=== PATIENT | female | born 1950 | race Caucasian/White ===

== ENCOUNTER → 2020-04-05 | Outpatient (CLI) | payer OTHER ==
[~2020-04-05] MED LIST: ALPR0.25 PO; ASCO100018 PO; ASPI81TA45 PO; CHOL10002 PO; ESTR1TAB27 PO; HYDR2TAB29 PO; L.AC1CAP6 PO; MAGN400T9 PO; METH750T87 PO; MULT-449 PO; OXYC5CAP2 PO; SENN8.6T98 PO; SIMV20TA19 PO; VENL37.58 PO
[2020-04-05 14:53] LABS: BASOPHILS % (AUTO) 1 % (0-1); EOSINOPHILS % (AUTO) 1 % (1-7); LYMPHOCYTES % (AUTO) 38 % (22-44); MEAN CORPUSCULAR HEMOGLOBIN 29.9 pg (27.0-34.8); MEAN CORPUSCULAR HGB CONC 32.9 g/dL (32.4-35.8); MEAN PLATELET VOLUME 9.5 fL (7.4-10.4); MONOCYTES % (AUTO) 8 % (2-9); NEUTROPHILS % (AUTO) 52 % (42-75); PLATELET COUNT 250 x10^3/uL (130-400); RED BLOOD COUNT 4.99 x10^6/uL (3.82-5.3); RED CELL DISTRIBUTION WIDTH 14.1 % (9.6-15.2)
[2020-04-05 14:54] LABS: MD NO
[2020-04-05 15:03] LABS: ANION GAP 6 mmol/L (5-15); CALCIUM 9.8 mg/dL (8.5-10.1); CHLORIDE 111 mmol/L (98-107); CREATININE 0.83 mg/dL (0.55-1.02)
== END | disposition home or self-care (01) ==
LOC: STAR 13:20
PROVIDERS: ATTEND Orthopaedic Surgery
DX: Z01.818 Encounter for other preprocedural examination (principal); M17.12 Unilateral primary osteoarthritis, left knee
CPT/HCPCS: 36415; 80048; 85025; 87081; 93005

== ENCOUNTER → 2020-04-14 | Outpatient (CLI) | payer OTHER | END | disposition home or self-care (01) | LOC: STAR 12:00 | PROVIDERS: ATTEND Anesthesiology | DX: Z01.812 Encounter for preprocedural laboratory examination (principal); Z20.828 Contact with and (suspected) exposure to other viral communicable diseases | CPT/HCPCS: 36415; 87635 ==

== ENCOUNTER 2020-04-18 09:41 | Observation (INO) | payer OTHER ==
[~2020-04-18] VITALS: Ht 161.3 cm; Wt 90.4 kg
[~2020-04-18 09:41] MED LIST changes: +EPINEPHRINE 1 MG/ML, 1ML ONE; +KETOROLAC 60 MG/2 ML ONE; +ROPIvacaine/PF 0.2%, 20 ML ONE; +SODIUM CHLORIDE 0.9% 50 ML ONE; +TRANEXAMIC ACID 100 MG/ML, 10ML ONE
[2020-04-18] MEDS ORDERED: LACTATED RINGERS 1,000 ML IV ONE (10:03)
[2020-04-18] MEDS ORDERED: CHLORHEXIDINE 15 ML UDC MM STA (10:03)
[2020-04-18] MEDS ORDERED: PLEASE ENTER HEIGHT AND WEIGHT MC SCH (10:30)
[2020-04-18] MEDS ORDERED: FENTANYL PF 100 MCG/2ML ONE ×5 (11:45→15:03)
[2020-04-18] MEDS ORDERED: MIDAZOLAM 1 MG/ML, 2ML ONE (11:45)
[2020-04-18] MEDS ORDERED: DEXAMETHASONE 4 MG/ML, 1ML ONE (12:09)
[2020-04-18] MEDS ORDERED: ONDANSETRON 2MG/ML, 2ML ONE (12:09)
[2020-04-18] MEDS ORDERED: ROCURONIUM 10MG/ML,5ML ONE (12:09)
[2020-04-18] MEDS ORDERED: NEOSTIGMINE 1 MG/ML, 10ML ONE (12:09)
[2020-04-18] MEDS ORDERED: CEFAZOLIN 1,000 MG ONE (12:09)
[2020-04-18] MEDS ORDERED: SUCCINYLCHOLINE 20 MG/ML, 10ML ONE (12:09)
[2020-04-18] MEDS ORDERED: PROPOFOL 10 MG/ML, 20ML ONE (12:09)
[2020-04-18] MEDS ORDERED: GLYCOPYRROLATE 0.2MG/1ML, 5ML ONE (12:09)
[2020-04-18] MEDS ORDERED: PROMETHAZINE 25 MG/ML, 1ML IVPush PRN (13:00)
[2020-04-18] MEDS ORDERED: MEPERIDINE/PF 25MG/0.5ML IVPush PRN (13:00)
[2020-04-18] MEDS ORDERED: OXYcodone 5 MG/5 ML ORAL.SOL UDC PO PRN (13:00)
[2020-04-18] MEDS ORDERED: HYDROcodone/APAP 7.5-325MG/15ML UDC PO PRN (13:00)
[2020-04-18] MEDS ORDERED: HYDROmorphone 1 MG/ML, 1ML INJ IVPush PRN ×2 (13:00→14:30)
[2020-04-18] MEDS: FENTANYL PF 100 MCG/2ML IV PRN ×3 (14:19→15:04)
[2020-04-18] MEDS ORDERED: LABETALOL 5MG/ML, 20ML ONE (14:24)
[2020-04-18] MEDS ORDERED: OXYcodone IR 5MG TABLET PO PRN (14:30)
[2020-04-18] MEDS ORDERED: ONDANSETRON 4 MG TABLET PO PRN (14:30)
[2020-04-18] MEDS ORDERED: PROMETHAZINE 25 MG/ML, 1ML IM PRN (14:30)
[2020-04-18] MEDS ORDERED: PSYLLIUM PACKET PO PRN (14:30)
[2020-04-18] MEDS ORDERED: ONDANSETRON 2MG/ML, 2ML IVPush PRN (14:30)
[2020-04-18] MEDS ORDERED: PROMETHAZINE 12.5 MG SUPP PR PRN (14:30)
[2020-04-18] MEDS ORDERED: POLYETHYLENE GLYCOL 17 GM PACKET PO PRN (14:30)
[2020-04-18] MEDS ORDERED: DIAZEPAM 5 MG TABLET PO PRN (14:30)
[2020-04-18] MEDS ORDERED: ALUMINUM/MAG/SIMETHICONE 30 ML UDC PO PRN (14:30)
[2020-04-18] MEDS ORDERED: SENNA/DOCUSATE TABLET PO PRN (14:30)
[2020-04-18] MEDS ORDERED: BISACODYL 10 MG SUPP PR PRN (14:30)
[2020-04-18] MEDS ORDERED: DIPHENHYDRAMINE 50 MG/ML, 1ML IVPush PRN (14:30)
[2020-04-18] MEDS ORDERED: METHOCARBAMOL 1,000 MG in DEXTROSE 5% 100 ML IV ONE (14:30)
[2020-04-18] MEDS ORDERED: MAGNESIUM HYDROXIDE 8%, 30ML UDC PO PRN (14:30)
[2020-04-18] MEDS ORDERED: DIPHENHYDRAMINE 50 MG CAPSULE PO PRN (14:30)
[2020-04-18] MEDS: LABETALOL 5MG/ML, 20ML IV PRN ×4 (14:31→15:14)
[2020-04-18] MEDS ORDERED: OXYcodone 5 MG/5 ML ORAL.SOL UDC ONE (14:37)
[2020-04-18 15:40] VITALS: BP 146/97
[2020-04-18] MEDS: ACETAMINOPHEN 500 MG TABLET PO SCH ×2 (16:10→22:57)
[2020-04-18] MEDS: SODIUM CHLORIDE 0.9% 1,000 ML IV SCH (16:10)
[2020-04-18] MEDS: KETOROLAC 30 MG/1 ML IV SCH (16:10)
[2020-04-18] MEDS: OXYcodone IR 5MG TABLET PO PRN ×2 (18:44→22:57)
[2020-04-18 19:37] VITALS: BP 128/74
[2020-04-18] MEDS: ASPIRIN 81 MG TABLET EC PO SCH (20:01)
[2020-04-18] MEDS: DOCUSATE 100 MG CAPSULE PO SCH (20:15)
[2020-04-18] MEDS ORDERED: TAMSULOSIN 0.4 MG CAP.ER.24H PO ONE (20:30)
[2020-04-18] MEDS: CEFAZOLIN PMX 1GM/50ML 50 ML IVPB SCH (20:35)
[2020-04-19] MEDS: KETOROLAC 30 MG/1 ML IV SCH ×2 (00:59→08:00)
[2020-04-19 01:04] VITALS: BP 117/73
[2020-04-19] MEDS: OXYcodone IR 5MG TABLET PO PRN (03:48)
[2020-04-19] MEDS: SODIUM CHLORIDE 0.9% 1,000 ML IV SCH (03:50)
[2020-04-19 03:55] VITALS: BP 135/67
[2020-04-19] MEDS: CEFAZOLIN PMX 1GM/50ML 50 ML IVPB SCH (04:51)
[2020-04-19] MEDS: ACETAMINOPHEN 500 MG TABLET PO SCH ×2 (04:52→09:32)
[2020-04-19] MEDS ORDERED: DEXAMETHASONE 4 MG/ML, 1ML IVPush SCH (06:00)
[2020-04-19 06:55] VITALS: BP 139/84
[2020-04-19] MEDS: ASPIRIN 81 MG TABLET EC PO SCH (09:00)
[2020-04-19] MEDS: DOCUSATE 100 MG CAPSULE PO SCH (09:00)
[2020-04-19 10:40] VITALS: BP 157/86
== END 2020-04-19 12:00 | disposition home or self-care (01) ==
LOC: OUT 09:41 → ORIP 14:12 → 3WST 15:51 → DCLOUNGE 04-19 11:41
PROVIDERS: ADMIT Orthopaedic Surgery; ATTEND Orthopaedic Surgery
DX: M17.12 Unilateral primary osteoarthritis, left knee (principal); F17.200 Nicotine dependence, unspecified, uncomplicated; Z98.1 Arthrodesis status; Z96.652 Presence of left artificial knee joint; Z79.899 Other long term (current) drug therapy
CPT/HCPCS: 27447; 36415; 73560; 85014; 85018; 96361; 96365; 96366; 96375; 96376; 97110; 97161; C1713; C1776; G0378; J0171; J0330; J0690; J1100; J1885; J2250; J2405; J2704; J2710; J2795; J2800; J3010; J7030; J7120